=== PATIENT | female | born 1985 | race American Indian/Alaskan Native ===

== ENCOUNTER 2016-12-03 12:19 | Inpatient (IN) | payer MEDICAID ==
[2016-12-03] MEDS ORDERED: LACTATED RINGERS 1,000 ML ONE ×2 (12:45→13:57)
[2016-12-03] MEDS ORDERED: BRETHINE ONE (12:53)
[2016-12-03] MEDS ORDERED: LACTATED RINGERS 500 ML IV ONE (12:54)
[2016-12-03] MEDS ORDERED: BRETHINE SUB-Q SCH (13:00)
--- NOTE | 2016-12-03 14:09 | History and Physical Report ---
History of Present Illness Date of examination: 12/03/16 Chief complaint: Contractions History of present illness: Pt is a 31yo BF EDC 01/21/17; EGA 33 0/7 weeks presents to L&D complaining of RUC's q 3-4 mins. 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 She has been non-compliant, and therefore has not seen [facility], however records indicate she was to see them on 11/29/16. She is currently janette despite SQ Terbutaline, and therefore will be admitted for IV magnesium sulfate for tocolysis. records are available, and GBS in unknown. 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: abnormal PAP smear (ASCUS/HPV+), chlamydia, herpes Family/Genetic History: diabetes, hypertension Social history: no significant social history, single - Obstetrical History Expected Date of Delivery: 01/21/17 Actual Gestation: 33 Week(s) 0 Day(s) : 8 Medications and Allergies Allergies Allergy/AdvReac Type Severity Reaction Status Date / Time seafood Allergy Severe Anaphylaxis Uncoded 03/14/14 07:52 Home Medications Medication Instructions Recorded Confirmed Last Taken Type Pnv with Ca,No.72/Iron/FA 1 cap PO DAILY 07/09/15 08/28/15 07/09/15 10:00 History [ Plus Tablet] Acyclovir [Zovirax Oral Susp] 400 mg PO BID 30 Days 07/10/15 08/28/15 Unknown Rx NIFEdipine 10 mg PO Q6H #120 capsule 07/10/15 08/28/15 Unknown Rx Active Meds: Active Medications Terbutaline Sulfate (Brethine) 0.25 mg SUB-Q Q20MIN HERO Stop: 12/04/16 12:59 Last Admin: 12/03/16 13:50 Dose: 0.25 mg Review of Systems All systems: negative - Vital Signs Vital signs: Vital Signs Pulse Pulse Ox 80 100 12/03/16 12:35 12/03/16 12:35 Temp Pulse Resp BP Pulse Ox 98.3 F 84 20 134/69 100 12/03/16 13:15 12/03/16 13:30 12/03/16 13:15 12/03/16 13:15 12/03/16 13:30 - Physical Exam Breasts: Positive: deferred Cardiovascular: Regular rate Lungs: Positive: Clear to auscultation Abdomen: Positive: normal appearance Genitourinary (Female): Positive: normal external genitalia Vagina: Positive: normal moisture Uterus: Positive: enlarged - Obstetrical FHR: category 1 Uterine Contraction Monitor Mode: External Cervical Dilatation: 0 (per nurse (external Os ? 4cms)) Cervical Effacement Percentage: 50 (per nurse) Uterine Contraction Pattern: Regular Uterine Tone Measurement Phase: Contraction Uterine Contraction Intensity: Moderate Results Result Diagrams: 12/03/16 14:55 12/03/16 14:55 All other labs normal. Assessment and Plan - Patient Problems (1) 33 weeks gestation of Onset Date: 12/03/16 Current Visit: Yes Status: Acute Plan to address problem: A: IUP @ 33 0/7 weeks in early labor labor History of 4 labor and deliveries Hypokalemia Non-compliant P: Admit to L&D for Observation Will begin IV magnesium for tocolysis, IV Celestone and IV antibiotics Replete K+ Obtain labs, CBC,CMP, UA, and UDS Obtain [facility] consultation (2) labor Onset Date: 12/03/16 Current Visit: No Status: Acute Qualifiers: labor trimester: third trimester labor delivery status: P Fetus number: single or unspecified fetus (3) Hypokalemia Onset Date: 12/03/16 Current Visit: Yes Status: Acute
[2016-12-03] MEDS ORDERED: ZOFRAN IV PRN (14:12)
[2016-12-03] MEDS ORDERED: COLACE PO PRN (14:12)
[2016-12-03] MEDS ORDERED: MAGNESIUM SULFATE 4GM/100ML 4 GM/100 ML BAG IV ONE (14:12)
[2016-12-03] MEDS ORDERED: SENOKOT S PO PRN (14:12)
[2016-12-03] MEDS ORDERED: MILK OF MAGNESIA PO PRN (14:12)
[2016-12-03] MEDS ORDERED: POLYCILLIN/NS 2 GM/100 ML 2 GM/100 ML BAG IV ONE (14:12)
[2016-12-03] MEDS ORDERED: AMBIEN PO PRN (14:12)
[2016-12-03] MEDS ORDERED: ROBITUSSIN DM PO PRN (14:12)
[2016-12-03] MEDS: STADOL IV PRN ×3 (14:21→21:18)
[2016-12-03] MEDS: MAGNESIUM SULFATE 40GM/1000ML 40 GM/1,000 ML BAG IV SCH (14:36)
[2016-12-03] MEDS: CELESTONE SOLUSPAN IM SCH (14:50)
[2016-12-03 15:07] LABS: Urine Drugs of Abuse Note Disclamer
[2016-12-03] MEDS: NORMODYNE PO SCH ×2 (15:10→22:02)
[2016-12-03 15:12] LABS: Basophils % (Auto) 0.3 % (0.0-1.8); Eosinophils % (Auto) 2.7 % (0.0-4.3); Hematocrit 31.5 % (30.3-42.9); Hemoglobin 10.4 gm/dl (10.1-14.3); Mean Corpuscular HGB Conc 33 % (30-34); Mean Corpuscular Hemoglobin 29 pg (28-32); Mean Corpuscular Volume 89 fl (79-97); Platelet Count 175 K/mm3 (140-440); Red Blood Count 3.55 M/mm3 (3.65-5.03)
[2016-12-03 15:18] LABS: Bilirubin,Urine NEG (Negative); Blood,Urine NEG (Negative); Ketones,Urine 20 mg/dL (Negative); Leukocyte Esterase,Urine NEG (Negative); Mucus,Urine FEW /HPF; Nitrite,Urine NEG (Negative); Protein,Urine <15 mg/dL mg/dL (Negative); Urobilinogen,Urine < 2.0 mg/dL (<2.0); WBC,Urine < 1.0 /HPF (0.0-6.0)
[2016-12-03 15:21] LABS: RBC,Urine < 1.0 /HPF (0.0-6.0)
[2016-12-03 15:40] LABS: Alanine Aminotransferase 7 units/L (7-56); Albumin 2.8 g/dL (3.9-5); Albumin/Globulin Ratio 1.1 %; Alkaline Phosphatase 46 units/L (35-129); Anion Gap 18 mmol/L; Bilirubin,Total 0.6 mg/dL (0.1-1.2); Blood Urea Nitrogen 5 mg/dL (7-17); Calcium 7.9 mg/dL (8.4-10.2); Carbon Dioxide 17 mmol/L (22-30); Chloride 104.8 mmol/L (98-107); Glucose 99 mg/dL (65-100); Sodium 137 mmol/L (137-145); Total Protein 5.4 g/dL (6.3-8.2)
[2016-12-03 15:42] LABS: Potassium 2.6 mmol/L (3.6-5.0)
[2016-12-03] MEDS ORDERED: K-DUR PO PRN (15:48)
--- NOTE | 2016-12-03 17:27 | Admit Criteria Form ---
Admission Criteria Documentation: LABOR, THREATENED Clinical Indications for Admission to Inpatient Care (Place 'X' for any and all applicable criteria): Admission is indicated for ANY ONE of the following 1,2,3: [ ]I. Chorioamnionitis [ ]II. Significant vaginal bleeding or any vaginal bleeding with known placental previa or vasa previa 5,8 [ ]III. Serious maternal, infection or comorbidity (eg, pyelonephritis, pneumonia) as cause [ ]IV. Delivery [ ]V. distress or demise [ ]. labor and positive fibronectin(fFN) assay (9) [ ]VII. Condition requiring premature delivery (eg, premature rupture of membranes) 4,5 [ X]VIII. Inpatient admission required rather than observation care (Also use Labor, Threatened: Observation Care Criteria as appropriate) because of ANY ONE of the following: [X ]a) Continued monitoring that requires inpatient care [ ]b) Tocolytic therapy needed that requires inpatient care [ ]c) Complications of tocolytic treatment (eg, pulmonary edema, hypotension) that are severe or persistent (9) Extended stay beyond goal length of stay may be needed for (1)(2) [ ]a) Significant infection (eg, chorioamnionitis)(29) [ ]b) Continued uterine contractions [ ]c) demise [ ]d) Continued vaginal bleeding or placental abnormality [ ]e) Complications of tocolytic treatment (eg, pulmonary edema, hypotension)( 15) [ ]f) Multiple gestation(33) [ ]g) Other condition (eg, severe maternal disease, premature delivery) requiring continued inpatient care The original [facility] content created by [employer] has been revised. The portions of the content which have been revised are identified through the use of italic text or in bold, and [facility] [employer] has neither reviewed nor approved the modified material. All other unmodified content is copyright [email or web address]. Please see references footnoted in the original [facility] [employer] edition 2016 Admission Criteria Met: Yes
[2016-12-03] MEDS: KCL 10MEQ/100ML 10 MEQ/100 ML BAG IV PRN ×4 (18:11→23:39)
[2016-12-03] MEDS: POLYCILLIN/NS 1 GM/50 ML 1 GM/50 ML BAG IV SCH ×2 (19:17→23:15)
[2016-12-03] MEDS: LACTATED RINGERS 1,000 ML IV SCH (23:14)
[2016-12-03] MEDS: TYLENOL PO PRN (23:45)
[2016-12-04] MEDS: KCL 10MEQ/100ML 10 MEQ/100 ML BAG IV PRN ×2 (00:43→01:59)
[2016-12-04] MEDS: POLYCILLIN/NS 1 GM/50 ML 1 GM/50 ML BAG IV SCH ×5 (03:17→20:18)
--- NOTE | 2016-12-04 08:15 | Ultrasound Report ---
OB ULTRASOUND FOLLOWUP HISTORY: well-being, growth in position. COMPARISON: No recent comparison at this facility. TECHNIQUE: Transabdominal ultrasound with Doppler interrogation. Gestation: Single Position: Cephalic Amniotic Fluid: Normal MUNDO = 16.6 cm Placenta: Fundal, right lateral Placental Grade: 1 Heart Rate: 120 BPM Cervical length: 2.3 cm (Normal > 3 cm) BPD: 8.4 cm = 33 w 5 d HC: 30.2 cm = 33 w 4 d AC: 31.0 cm = 34 w 6 d FL: 6.3 cm = 32 w 4 d HC/AC Ratio: 0.98 Cephalic Index: 83.3 Estimated Weight: 2323 grams LMP: 04/16/16 Clinical age = 33 w 0 d EDC: 01/21/17 US Gest. Age = 33 w 5 d EDC: 01/16/17
--- NOTE | 2016-12-04 09:28 | Consultation ---
History of Present Illness Consult date: 12/04/16 Requesting physician: PERLA DELAROSA Reason for consult: contractions History of present illness: Patient admitted with labor at 33 weeks 1 day. Chart reviewed. Agree with current management. Patient may have a light breakfast Agree with completion of steroids and magnesium sulfate at this point. Full consult to follow. 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: abnormal PAP smear (ASCUS/HPV+), chlamydia, herpes Family/Genetic History: diabetes, hypertension - Obstetrical History : 8 Medications and Allergies Allergies Allergy/AdvReac Type Severity Reaction Status Date / Time seafood Allergy Severe Anaphylaxis Uncoded 03/14/14 07:52 Home Medications Medication Instructions Recorded Confirmed Last Taken Type Pnv with Ca,No.72/Iron/FA 1 cap PO DAILY 07/09/15 08/28/15 07/09/15 10:00 History [ Plus Tablet] Acyclovir [Zovirax Oral Susp] 400 mg PO BID 30 Days 07/10/15 08/28/15 Unknown Rx NIFEdipine 10 mg PO Q6H #120 capsule 07/10/15 08/28/15 Unknown Rx Active Meds: Active Medications Acetaminophen (Tylenol) 650 mg PO Q4H PRN PRN Reason: Pain MILD(1-3)/Fever >100.5/NAVARRO Last Admin: 12/03/16 23:45 Dose: 650 mg Betamethasone Acet/Betameth SodPhos (Celestone Soluspan) 12 mg IM Q24HR HERO Stop: 12/04/16 10:01 Last Admin: 12/03/16 14:50 Dose: 12 mg Butorphanol Tartrate (Stadol) 2 mg IV Q2H PRN PRN Reason: Labor Pain Last Admin: 12/03/16 21:18 Dose: 2 mg Docusate Sodium (Colace) 100 mg PO Q12H PRN PRN Reason: Constipation Guaifenesin (Robitussin Dm) 10 ml PO Q6H PRN PRN Reason: Cough Ampicillin Sodium (Polycillin/Ns 1 Gm/50 Ml) 1 gm in 50 mls @ 100 mls/hr IV Q4HR HERO PRN Reason: Protocol Last Admin: 12/04/16 07:15 Dose: 100 mls/hr Lactated Ringer's (Lactated Ringers) 1,000 mls @ 125 mls/hr IV DIRECT HERO Last Admin: 12/03/16 23:14 Dose: 125 mls/hr Magnesium Sulfate (Magnesium Sulfate 40gm/1000ml) 40 gm in 1,000 mls @ 50 mls/ hr IV DIRECT HERO PRN Reason: 2 GM/HR Last Admin: 12/03/16 14:36 Dose: 2 gm/hr, 50 mls/hr Potassium Chloride (Kcl 10meq/100ml) 10 meq in 100 mls @ 100 mls/hr IV Q1H PRN PRN Reason: Potassium 2.6-2.9 mEq/L Last Admin: 12/04/16 01:59 Dose: 100 mls/hr Labetalol HCl (Normodyne) 200 mg PO BID [facility] Last Admin: 12/03/16 22:02 Dose: 200 mg Magnesium Hydroxide (Milk Of Magnesia) 30 ml PO QHS PRN PRN Reason: Laxative Effect Multivitamins/Iron/Calcium ( Vitamin) 1 each PO QDAY [facility] Ondansetron HCl (Zofran) 4 mg IV Q6H PRN PRN Reason: Nausea And Vomiting Senna/Docusate Sodium (Senokot S) 2 tab PO Q12H PRN PRN Reason: Laxative Effect Terbutaline Sulfate (Brethine) 0.25 mg SUB-Q Q20MIN [facility] Stop: 12/04/16 12:59 Last Admin: 12/03/16 13:50 Dose: 0.25 mg Zolpidem Tartrate (Ambien) 10 mg PO ONCE PRN PRN Reason: Sleep - Vital Signs Vital signs: Vital Signs Pulse Pulse Ox 80 100 12/03/16 12:35 12/03/16 12:35 Temp Pulse Resp BP Pulse Ox 98.0 F 88 20 117/64 100 12/03/16 23:40 12/04/16 09:19 12/03/16 23:40 12/04/16 09:01 12/04/16 09:19 Results Result Diagrams: 12/03/16 14:55 12/04/16 04:10 Abnormal lab results 12/03/16 12/03/16 12/03/16 Range/Units 14:55 14:55 14:59 RBC 3.55 L (3.65-5.03) M/mm3 RDW 13.0 L (13.2-15.2) % [place] % (Auto) 9.7 H (0.0-7.3) % [place] # 0.9 H (0.0-0.8) K/mm3 Potassium 2.6 L* (3.6-5.0) mmol/L Carbon Dioxide 17 L (22-30) mmol/L BUN 5 L (7-17) mg/dL Creatinine 0.4 L (0.7-1.2) mg/dL Calcium 7.9 L (8.4-10.2) mg/dL Total Protein 5.4 L (6.3-8.2) g/dL Albumin 2.8 L (3.9-5) g/dL Urine pH 8.0 H (5.0-7.0) U Epithel Cells (Auto) 16.0 H (0-13.0) /HPF All other labs normal. Assessment and Plan Patient may have a light breakfast Agree with completion of steroids and magnesium sulfate at this point. Full consult to follow.
[2016-12-04] MEDS: PRENATAL VITAMIN PO SCH (09:56)
[2016-12-04] MEDS: NORMODYNE PO SCH ×2 (09:56→21:43)
--- NOTE | 2016-12-04 10:06 | Progress Note ---
Assessment and Plan - Patient Problems (1) 33 weeks gestation of Onset Date: 12/03/16 Current Visit: Yes Status: Acute Plan to address problem: A: IUP @ 33 1/7 weeks in early labor labor History of 4 labor and deliveries Hypokalemia - resolved Non-compliant +THC P: Continue present management Continue IV magnesium for tocolysis, IV Celestone and IV antibiotics Appreciate [facility] consultation (2) labor Onset Date: 12/03/16 Current Visit: No Status: Acute Qualifiers: labor trimester: third trimester labor delivery status: P Fetus number: single or unspecified fetus (3) Hypokalemia Onset Date: 12/03/16 Current Visit: Yes Status: Acute Subjective - Subjective Date of service: 12/04/16 Principal diagnosis: IUP @ 33 1/7 weeks; PTL Interval history: Pt is a 31yo BF EDC 01/21/17; EGA 33 1/7 weeks currently on magnesium sulfate for tocolysis and received 1st dose of Celestone. She denies reg contractions. Patient reports: new complaints, movement normal, contractions, no loss of fluid, no vaginal bleeding Objective - Vital Signs Vital Signs: Vital Signs - 12hr 12/03/16 12/03/16 12/03/16 22:11 22:16 22:21 Temperature Pulse Rate 83 91 H 94 H Pulse Rate [ Left From Monitor] Respiratory Rate Blood Pressure O2 Sat by Pulse 99 98 98 Oximetry 12/03/16 12/03/16 12/03/16 22:25 22:26 22:31 Temperature Pulse Rate 96 H 99 H 93 H Pulse Rate [ Left From Monitor] Respiratory Rate Blood Pressure 135/75 O2 Sat by Pulse 94 99 98 Oximetry 12/03/16 12/03/16 12/03/16 22:36 22:41 22:46 Temperature Pulse Rate 86 84 95 H Pulse Rate [ Left From Monitor] Respiratory Rate Blood Pressure O2 Sat by Pulse 98 99 98 Oximetry 12/03/16 12/03/16 12/03/16 22:51 22:56 23:01 Temperature Pulse Rate 88 90 89 Pulse Rate [ Left From Monitor] Respiratory Rate Blood Pressure 123/73 O2 Sat by Pulse 97 96 99 Oximetry 12/03/16 12/03/16 12/03/16 23:06 23:11 23:16 Temperature Pulse Rate 88 90 100 H Pulse Rate [ Left From Monitor] Respiratory Rate Blood Pressure O2 Sat by Pulse 98 99 97 Oximetry 12/03/16 12/03/16 12/03/16 23:21 23:26 23:31 Temperature Pulse Rate 95 H 93 H 88 Pulse Rate [ Left From Monitor] Respiratory Rate Blood Pressure 122/68 O2 Sat by Pulse 98 97 97 Oximetry 12/03/16 12/03/16 12/03/16 23:36 23:40 23:41 Temperature 98.0 F Pulse Rate 91 H 93 H Pulse Rate [ 92 H Left From Monitor] Respiratory 20 Rate Blood Pressure O2 Sat by Pulse 99 98 97 Oximetry 12/03/16 12/03/16 12/03/16 23:46 23:51 23:56 Temperature Pulse Rate 93 H 93 H 89 Pulse Rate [ Left From Monitor] Respiratory Rate Blood Pressure O2 Sat by Pulse 97 97 98 Oximetry 12/04/16 12/04/16 12/04/16 00:01 00:06 00:11 Temperature Pulse Rate 89 94 H 92 H Pulse Rate [ Left From Monitor] Respiratory Rate Blood Pressure 130/62 O2 Sat by Pulse 99 99 98 Oximetry 12/04/16 12/04/16 12/04/16 00:16 00:21 00:26 Temperature Pulse Rate 95 H 96 H 98 H Pulse Rate [ Left From Monitor] Respiratory Rate Blood Pressure O2 Sat by Pulse 98 98 99 Oximetry 12/04/16 12/04/16 12/04/16 00:31 00:36 00:41 Temperature Pulse Rate 97 H 97 H 94 H Pulse Rate [ Left From Monitor] Respiratory Rate Blood Pressure 133/74 O2 Sat by Pulse 98 97 99 Oximetry 12/04/16 12/04/16 12/04/16 00:46 00:51 00:56 Temperature Pulse Rate 92 H 94 H 94 H Pulse Rate [ Left From Monitor] Respiratory Rate Blood Pressure O2 Sat by Pulse 98 96 97 Oximetry 12/04/16 12/04/16 12/04/16 01:01 01:02 01:06 Temperature Pulse Rate 94 H 95 H 99 H Pulse Rate [ Left From Monitor] Respiratory Rate Blood Pressure 129/74 O2 Sat by Pulse 97 96 Oximetry 12/04/16 12/04/16 12/04/16 01:11 01:16 01:21 Temperature Pulse Rate 92 H 92 H 92 H Pulse Rate [ Left From Monitor] Respiratory Rate Blood Pressure O2 Sat by Pulse 96 97 97 Oximetry 12/04/16 12/04/16 12/04/16 01:26 01:31 01:36 Temperature Pulse Rate 94 H 94 H 94 H Pulse Rate [ Left From Monitor] Respiratory Rate Blood Pressure 128/69 O2 Sat by Pulse 97 97 97 Oximetry 12/04/16 12/04/16 12/04/16 01:41 01:46 01:51 Temperature Pulse Rate 92 H 92 H 94 H Pulse Rate [ Left From Monitor] Respiratory Rate Blood Pressure O2 Sat by Pulse 96 97 98 Oximetry 12/04/16 12/04/16 12/04/16 01:56 02:01 02:06 Temperature Pulse Rate 91 H 90 91 H Pulse Rate [ Left From Monitor] Respiratory Rate Blood Pressure 121/64 O2 Sat by Pulse 97 98 97 Oximetry 12/04/16 12/04/16 12/04/16 02:11 02:16 02:21 Temperature Pulse Rate 94 H 91 H 94 H Pulse Rate [ Left From Monitor] Respiratory Rate Blood Pressure O2 Sat by Pulse 97 97 97 Oximetry 12/04/16 12/04/16 12/04/16 02:26 02:31 02:36 Temperature Pulse Rate 90 86 94 H Pulse Rate [ Left From Monitor] Respiratory Rate Blood Pressure 117/61 O2 Sat by Pulse 97 98 97 Oximetry 12/04/16 12/04/16 12/04/16 02:41 02:46 02:51 Temperature Pulse Rate 94 H 93 H 92 H Pulse Rate [ Left From Monitor] Respiratory Rate Blood Pressure O2 Sat by Pulse 97 98 97 Oximetry 12/04/16 12/04/16 12/04/16 02:56 03:01 03:06 Temperature Pulse Rate 92 H 87 91 H Pulse Rate [ Left From Monitor] Respiratory Rate Blood Pressure 126/71 O2 Sat by Pulse 98 98 97 Oximetry 12/04/16 12/04/16 12/04/16 03:11 03:16 03:21 Temperature Pulse Rate 91 H 99 H 93 H Pulse Rate [ Left From Monitor] Respiratory Rate Blood Pressure O2 Sat by Pulse 97 97 97 Oximetry 12/04/16 12/04/16 12/04/16 03:26 03:31 03:32 Temperature Pulse Rate 97 H 98 H 96 H Pulse Rate [ Left From Monitor] Respiratory Rate Blood Pressure 107/60 O2 Sat by Pulse 98 97 Oximetry 12/04/16 12/04/16 12/04/16 03:36 03:41 03:46 Temperature Pulse Rate 93 H 94 H 87 Pulse Rate [ Left From Monitor] Respiratory Rate Blood Pressure O2 Sat by Pulse 96 98 98 Oximetry 12/04/16 12/04/16 12/04/16 03:51 03:56 04:01 Temperature Pulse Rate 91 H 89 84 Pulse Rate [ Left From Monitor] Respiratory Rate Blood Pressure 118/77 O2 Sat by Pulse 100 100 99 Oximetry 12/04/16 12/04/16 12/04/16 04:06 04:11 04:16 Temperature Pulse Rate 83 83 88 Pulse Rate [ Left From Monitor] Respiratory Rate Blood Pressure O2 Sat by Pulse 99 98 98 Oximetry 12/04/16 12/04/16 12/04/16 04:21 04:26 04:31 Temperature Pulse Rate 90 84 81 Pulse Rate [ Left From Monitor] Respiratory Rate Blood Pressure 121/63 O2 Sat by Pulse 99 100 100 Oximetry 12/04/16 12/04/16 12/04/16 04:36 04:41 04:46 Temperature Pulse Rate 84 86 86 Pulse Rate [ Left From Monitor] Respiratory Rate Blood Pressure O2 Sat by Pulse 100 99 99 Oximetry 12/04/16 12/04/16 12/04/16 04:51 04:56 05:01 Temperature Pulse Rate 88 83 88 Pulse Rate [ Left From Monitor] Respiratory Rate Blood Pressure 118/68 O2 Sat by Pulse 99 99 99 Oximetry 12/04/16 12/04/16 12/04/16 05:06 05:11 05:16 Temperature Pulse Rate 84 82 84 Pulse Rate [ Left From Monitor] Respiratory Rate Blood Pressure O2 Sat by Pulse 99 100 99 Oximetry 12/04/16 12/04/16 12/04/16 05:21 05:26 05:31 Temperature Pulse Rate 90 86 91 H Pulse Rate [ Left From Monitor] Respiratory Rate Blood Pressure 120/65 O2 Sat by Pulse 100 100 99 Oximetry 12/04/16 12/04/16 12/04/16 05:36 05:41 05:46 Temperature Pulse Rate 86 87 82 Pulse Rate [ Left From Monitor] Respiratory Rate Blood Pressure O2 Sat by Pulse 100 100 100 Oximetry 12/04/16 12/04/16 12/04/16 05:51 05:56 06:01 Temperature Pulse Rate 85 95 H 88 Pulse Rate [ Left From Monitor] Respiratory Rate Blood Pressure 119/68 O2 Sat by Pulse 100 100 100 Oximetry 12/04/16 12/04/16 12/04/16 06:06 06:11 06:16 Temperature Pulse Rate 90 89 96 H Pulse Rate [ Left From Monitor] Respiratory Rate Blood Pressure O2 Sat by Pulse 100 100 100 Oximetry 12/04/16 12/04/16 12/04/16 06:31 06:34 06:39 Temperature Pulse Rate 89 89 89 Pulse Rate [ Left From Monitor] Respiratory Rate Blood Pressure 122/67 O2 Sat by Pulse 100 99 Oximetry 12/04/16 12/04/16 12/04/16 06:44 06:49 06:54 Temperature Pulse Rate 99 H 87 88 Pulse Rate [ Left From Monitor] Respiratory Rate Blood Pressure O2 Sat by Pulse 100 99 99 Oximetry 12/04/16 12/04/16 12/04/16 06:59 07:01 07:04 Temperature Pulse Rate 84 93 H 84 Pulse Rate [ Left From Monitor] Respiratory Rate Blood Pressure 121/64 O2 Sat by Pulse 99 98 Oximetry 12/04/16 12/04/16 12/04/16 07:09 07:14 07:19 Temperature Pulse Rate 83 88 88 Pulse Rate [ Left From Monitor] Respiratory Rate Blood Pressure O2 Sat by Pulse 98 98 98 Oximetry 12/04/16 12/04/16 12/04/16 07:24 07:29 07:31 Temperature Pulse Rate 88 89 90 Pulse Rate [ Left From Monitor] Respiratory Rate Blood Pressure 123/65 O2 Sat by Pulse 98 98 Oximetry 12/04/16 12/04/16 12/04/16 07:34 07:39 07:44 Temperature Pulse Rate 85 88 95 H Pulse Rate [ Left From Monitor] Respiratory Rate Blood Pressure O2 Sat by Pulse 99 99 100 Oximetry 12/04/16 12/04/16 12/04/16 07:49 07:54 07:59 Temperature Pulse Rate 90 89 90 Pulse Rate [ Left From Monitor] Respiratory Rate Blood Pressure O2 Sat by Pulse 98 100 98 Oximetry 12/04/16 12/04/16 12/04/16 08:01 08:04 08:09 Temperature Pulse Rate 88 88 88 Pulse Rate [ Left From Monitor] Respiratory Rate Blood Pressure 122/56 O2 Sat by Pulse 100 100 Oximetry 12/04/16 12/04/16 12/04/16 08:14 08:19 08:24 Temperature Pulse Rate 86 86 86 Pulse Rate [ Left From Monitor] Respiratory Rate Blood Pressure O2 Sat by Pulse 100 100 100 Oximetry 12/04/16 12/04/16 12/04/16 08:29 08:31 08:34 Temperature Pulse Rate 88 83 85 Pulse Rate [ Left From Monitor] Respiratory Rate Blood Pressure 115/64 O2 Sat by Pulse 100 100 Oximetry 12/04/16 12/04/16 12/04/16 08:38 08:39 08:44 Temperature Pulse Rate 86 83 84 Pulse Rate [ Left From Monitor] Respiratory Rate Blood Pressure O2 Sat by Pulse 92 100 100 Oximetry 12/04/16 12/04/16 12/04/16 08:49 08:54 08:59 Temperature Pulse Rate 82 88 84 Pulse Rate [ Left From Monitor] Respiratory Rate Blood Pressure O2 Sat by Pulse 100 100 100 Oximetry 12/04/16 12/04/16 12/04/16 09:01 09:04 09:09 Temperature Pulse Rate 87 86 87 Pulse Rate [ Left From Monitor] Respiratory Rate Blood Pressure 117/64 O2 Sat by Pulse 100 100 Oximetry 12/04/16 12/04/16 12/04/16 09:14 09:19 09:24 Temperature Pulse Rate 83 88 86 Pulse Rate [ Left From Monitor] Respiratory Rate Blood Pressure O2 Sat by Pulse 99 100 100 Oximetry 12/04/16 12/04/16 12/04/16 09:29 09:31 09:34 Temperature Pulse Rate 84 85 88 Pulse Rate [ Left From Monitor] Respiratory Rate Blood Pressure 122/67 O2 Sat by Pulse 100 100 Oximetry 12/04/16 12/04/16 12/04/16 09:39 09:44 09:49 Temperature Pulse Rate 92 H 84 88 Pulse Rate [ Left From Monitor] Respiratory Rate Blood Pressure O2 Sat by Pulse 100 100 100 Oximetry 12/04/16 12/04/16 12/04/16 09:54 09:55 09:56 Temperature Pulse Rate 81 91 H 85 Pulse Rate [ Left From Monitor] Respiratory Rate Blood Pressure 122/67 O2 Sat by Pulse 100 85 Oximetry 12/04/16 12/04/16 09:59 10:04 Temperature 98.0 F Pulse Rate 87 Pulse Rate [ 89 Left From Monitor] Respiratory 18 Rate Blood Pressure O2 Sat by Pulse 100 100 Oximetry - Exam Breasts: deferred Lungs: Clear to auscultation Abdomen: Present: normal appearance, soft Uterus: Present: normal FHR: category 1 Uterine Contraction Monitor Mode: External Uterine Contraction Pattern: Irregular Uterine Contraction Intensity: Mild - Labs Labs: Abnormal Labs 12/03/16 12/03/16 12/03/16 14:55 14:55 14:59 RBC 3.55 L RDW 13.0 L [place] % (Auto) 9.7 H [place] # 0.9 H Potassium 2.6 L* Carbon Dioxide 17 L BUN 5 L Creatinine 0.4 L Calcium 7.9 L Total Protein 5.4 L Albumin 2.8 L Urine pH 8.0 H U Epithel Cells (Auto) 16.0 H Laboratory Results - last 24 hr 12/03/16 12/03/16 12/03/16 14:30 14:55 14:55 WBC 9.0 RBC 3.55 L Hgb 10.4 Hct 31.5 MCV 89 MCH 29 MCHC 33 RDW 13.0 L Plt Count 175 Lymph % (Auto) 32.1 [place] % (Auto) 9.7 H Eos % (Auto) 2.7 Baso % (Auto) 0.3 Lymph # 2.9 [place] # 0.9 H Eos # 0.2 Baso # 0.0 Seg Neutrophils % 55.2 Seg Neutrophils # 4.9 Sodium 137 Potassium 2.6 L* Chloride 104.8 Carbon Dioxide 17 L Anion Gap 18 BUN 5 L Creatinine 0.4 L Estimated GFR > 60 BUN/Creatinine Ratio 12.50 Glucose 99 Calcium 7.9 L Total Bilirubin 0.6 AST 12 ALT 7 Alkaline Phosphatase 46 Total Protein 5.4 L Albumin 2.8 L Albumin/Globulin Ratio 1.1 Urine Color Urine Turbidity Urine pH Ur Specific [place] Urine Protein Urine Glucose (UA) Urine Ketones Urine Blood Urine Nitrite Urine Bilirubin Urine Urobilinogen Ur Leukocyte Esterase Urine WBC (Auto) Urine RBC (Auto) U Epithel Cells (Auto) Urine Mucus Urine Opiates Screen Urine Methadone Screen Ur Barbiturates Screen Ur Phencyclidine Scrn Ur Amphetamines Screen U Benzodiazepines Scrn Urine Cocaine Screen U Marijuana (THC) Screen Drugs of Abuse Note Blood Type A POSITIVE Antibody Screen Negative 12/03/16 12/03/16 12/04/16 14:59 14:59 04:10 WBC RBC Hgb Hct MCV MCH MCHC RDW Plt Count Lymph % (Auto) [place] % (Auto) Eos % (Auto) Baso % (Auto) Lymph # [place] # Eos # Baso # Seg Neutrophils % Seg Neutrophils # Sodium Potassium 4.7 D Chloride Carbon Dioxide Anion Gap BUN Creatinine Estimated GFR BUN/Creatinine Ratio Glucose Calcium Total Bilirubin AST ALT Alkaline Phosphatase Total Protein Albumin Albumin/Globulin Ratio Urine Color Yellow Urine Turbidity Slightly-cloudy Urine pH 8.0 H Ur Specific [place] 1.012 Urine Protein <15 mg/dl Urine Glucose (UA) Neg Urine Ketones 20 Urine Blood Neg Urine Nitrite Neg Urine Bilirubin Neg Urine Urobilinogen < 2.0 Ur Leukocyte Esterase Neg Urine WBC (Auto) < 1.0 Urine RBC (Auto) < 1.0 U Epithel Cells (Auto) 16.0 H Urine Mucus Few Urine Opiates Screen Presumptive negative Urine Methadone Screen Presumptive negative Ur Barbiturates Screen Presumptive negative Ur Phencyclidine Scrn Presumptive negative Ur Amphetamines Screen Presumptive negative U Benzodiazepines Scrn Presumptive negative Urine Cocaine Screen Presumptive negative U Marijuana (THC) Screen Presumptive positive Drugs of Abuse Note Disclamer Blood Type Antibody Screen
[2016-12-04] MEDS: MAGNESIUM SULFATE 40GM/1000ML 40 GM/1,000 ML BAG IV SCH (11:34)
[2016-12-04] MEDS: TYLENOL PO PRN (13:39)
[2016-12-04] MEDS: LACTATED RINGERS 1,000 ML IV SCH (14:14)
[2016-12-04] MEDS: CELESTONE SOLUSPAN IM SCH (14:14)
[2016-12-04] MEDS ORDERED: CELESTONE SOLUSPAN IM ONE (15:00)
--- NOTE | 2016-12-04 15:44 | Consultation ---
History of Present Illness Consult date: 12/04/16 Requesting physician: PERLA DELAROSA History of present illness: As you are aware, this is an 31 year old para 4125 patient at EGA= 33 weeks 1 days gestation (based on an KALIE of 01/21/17) who was admitted to the L&D at [facility] due to suspected labor. Patient describes contractions over the last 3-4 days. She denies vaginal bleeding or fluid leakage per vagina. PAST OBSTERICAL HISTORY: * 2010: BW: ~ 5 pounds * 2012: BW: ~ 5 pounds * 2013: at 28 weeks. BW: 3 pounds. * 2014: BW: ~ 5 pounds * 2015: BW: ~ 5 pounds [facility] ULTRASONOGRAPHY: o See report in chart. Physical Examination: See hospital chart for details Recent blood pressures: stable General exam: WDWN, NAD. Abdominal exam: soft, non-tender, non-distended, bowel sounds: normal. SVE on admission: See previous notes. [place]: Minimal contractions appreciated at present. 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[employer]ER History: abnormal PAP smear (ASCUS/HPV+), chlamydia, herpes Family/Genetic History: diabetes, hypertension - Obstetrical History : 8 Medications and Allergies Allergies Allergy/AdvReac Type Severity Reaction Status Date / Time seafood Allergy Severe Anaphylaxis Uncoded 03/14/14 07:52 Home Medications Medication Instructions Recorded Confirmed Last Taken Type Pnv with Ca,No.72/Iron/FA 1 cap PO DAILY 07/09/15 08/28/15 07/09/15 10:00 History [ Plus Tablet] Acyclovir [Zovirax Oral Susp] 400 mg PO BID 30 Days 07/10/15 08/28/15 Unknown Rx NIFEdipine 10 mg PO Q6H #120 capsule 07/10/15 08/28/15 Unknown Rx Active Meds: Active Medications Acetaminophen (Tylenol) 650 mg PO Q4H PRN PRN Reason: Pain MILD(1-3)/Fever >100.5/NAVARRO Last Admin: 12/04/16 13:39 Dose: 650 mg Butorphanol Tartrate (Stadol) 2 mg IV Q2H PRN PRN Reason: Labor Pain Last Admin: 12/03/16 21:18 Dose: 2 mg Docusate Sodium (Colace) 100 mg PO Q12H PRN PRN Reason: Constipation Guaifenesin (Robitussin Dm) 10 ml PO Q6H PRN PRN Reason: Cough Ampicillin Sodium (Polycillin/Ns 1 Gm/50 Ml) 1 gm in 50 mls @ 100 mls/hr IV Q4HR HERO PRN Reason: Protocol Last Admin: 12/04/16 14:13 Dose: 100 mls/hr Lactated Ringer's (Lactated Ringers) 1,000 mls @ 125 mls/hr IV DIRECT HERO Last Admin: 12/04/16 14:14 Dose: 125 mls/hr Magnesium Sulfate (Magnesium Sulfate 40gm/1000ml) 40 gm in 1,000 mls @ 50 mls/ hr IV DIRECT HERO PRN Reason: 2 GM/HR Last Admin: 12/04/16 11:34 Dose: 2 gm/hr, 50 mls/hr Potassium Chloride (Kcl 10meq/100ml) 10 meq in 100 mls @ 100 mls/hr IV Q1H PRN PRN Reason: Potassium 2.6-2.9 mEq/L Last Admin: 12/04/16 01:59 Dose: 100 mls/hr Labetalol HCl (Normodyne) 200 mg PO BID [facility] Last Admin: 12/04/16 09:56 Dose: 200 mg Magnesium Hydroxide (Milk Of Magnesia) 30 ml PO QHS PRN PRN Reason: Laxative Effect Multivitamins/Iron/Calcium ( Vitamin) 1 each PO QDAY [facility] Last Admin: 12/04/16 09:56 Dose: 1 each Ondansetron HCl (Zofran) 4 mg IV Q6H PRN PRN Reason: Nausea And Vomiting Senna/Docusate Sodium (Senokot S) 2 tab PO Q12H PRN PRN Reason: Laxative Effect Zolpidem Tartrate (Ambien) 10 mg PO ONCE PRN PRN Reason: Sleep - Vital Signs Vital signs: Vital Signs Pulse Pulse Ox 80 100 12/03/16 12:35 12/03/16 12:35 Temp Pulse Resp BP Pulse Ox 98.0 F 87 20 116/59 98 12/04/16 12:00 12/04/16 15:33 12/04/16 12:00 12/04/16 15:33 12/04/16 13:42 Results Result Diagrams: 12/03/16 14:55 12/04/16 04:10 All other labs normal. Assessment and Plan ASSESSMENT: * IUP at 33 weeks. * Contractions and Cervical change. * Rule out labor. RECOMMENDATIONS & CONSULTATION: 1. Agree with admission to [facility] 2. Betamethasone is advisable to enhance lung maturation 3. Given the current gestational age, estimated weight and progressive nature of contractions I would exercise caution with additional (aggressive) tocolysis given the narrow margin between risk and benefit for these medications at this gestational age. 4. Currently there is insufficient evidence to support aggressive intravenous tocolysis in this patient after completion of steroids. 5. I would abandon all attempts of tocolysis in the presence of SROM, unexplained vaginal bleeding, SVE > 5 cm or a non-reassuring heart rate pattern. 6. Call [facility] PRN a change in maternal or status. Thank you for allowing us to participate in the care of this patient. We look forward to the opportunity to assist in her continued management. If you have any questions, please contact our office at [phone]. Ange Bear M.D.
[2016-12-04] MEDS: PHENERGAN PO PRN ×2 (17:53→23:08)
[2016-12-05] MEDS ORDERED: MAGNESIUM SULFATE 40GM/1000ML 40 GM/1,000 ML BAG IV SCH (08:00)
--- NOTE | 2016-12-05 09:49 | Progress Note ---
Assessment and Plan - Patient Problems (1) 33 weeks gestation of Onset Date: 12/03/16 Current Visit: Yes Status: Acute Plan to address problem: A: IUP @ 33 2/7 weeks labor - resolved. Received magnesium sulfate and Celestone History of 4 labor and deliveries Hypokalemia - resolved Non-compliant +THC P: Will discharge to home (Discussed with Dr Celaya - no need for further tocolysis) Follow up with [facility] next week (2) labor Onset Date: 12/03/16 Current Visit: No Status: Acute Qualifiers: labor trimester: third trimester labor delivery status: P Fetus number: single or unspecified fetus (3) Hypokalemia Onset Date: 12/03/16 Current Visit: Yes Status: Acute Subjective - Subjective Date of service: 12/05/16 Principal diagnosis: IUP @ 33 2/7 weeks; PTL Interval history: Pt is a 31yo BF EDC 01/21/17; EGA 33 2/7 weeks currently on magnesium sulfate for tocolysis and received 2nd dose of Celestone. She denies reg contractions. Patient reports: new complaints, movement normal, no loss of fluid, no vaginal bleeding, no contractions Objective - Vital Signs Vital Signs: Vital Signs - 12hr 12/04/16 12/04/16 12/04/16 21:49 21:54 21:59 Temperature Pulse Rate 95 H 100 H 108 H Pulse Rate [ Left From Monitor] Respiratory Rate Blood Pressure Blood Pressure [Left Arm] O2 Sat by Pulse 97 98 98 Oximetry 12/04/16 12/04/16 12/04/16 22:04 22:09 22:14 Temperature Pulse Rate 101 H 91 H 89 Pulse Rate [ Left From Monitor] Respiratory Rate Blood Pressure Blood Pressure [Left Arm] O2 Sat by Pulse 98 97 98 Oximetry 12/04/16 12/04/16 12/04/16 22:19 22:24 22:29 Temperature Pulse Rate 96 H 91 H 98 H Pulse Rate [ Left From Monitor] Respiratory Rate Blood Pressure Blood Pressure [Left Arm] O2 Sat by Pulse 97 97 98 Oximetry 12/04/16 12/04/16 12/04/16 22:34 22:39 22:42 Temperature Pulse Rate 90 90 90 Pulse Rate [ Left From Monitor] Respiratory Rate Blood Pressure 109/58 Blood Pressure [Left Arm] O2 Sat by Pulse 98 97 Oximetry 12/04/16 12/04/16 12/04/16 22:44 22:51 22:56 Temperature Pulse Rate 96 H 84 98 H Pulse Rate [ Left From Monitor] Respiratory Rate Blood Pressure Blood Pressure [Left Arm] O2 Sat by Pulse 97 98 99 Oximetry 12/04/16 12/04/16 12/04/16 23:01 23:06 23:09 Temperature 98.1 F Pulse Rate 92 H 89 Pulse Rate [ Left From Monitor] Respiratory 18 Rate Blood Pressure Blood Pressure [Left Arm] O2 Sat by Pulse 97 98 Oximetry 12/04/16 12/04/16 12/04/16 23:11 23:16 23:21 Temperature Pulse Rate 91 H 93 H 90 Pulse Rate [ Left From Monitor] Respiratory Rate Blood Pressure Blood Pressure [Left Arm] O2 Sat by Pulse 98 98 97 Oximetry 12/04/16 12/04/16 12/04/16 23:26 23:31 23:36 Temperature Pulse Rate 95 H 92 H 89 Pulse Rate [ Left From Monitor] Respiratory Rate Blood Pressure Blood Pressure [Left Arm] O2 Sat by Pulse 97 97 98 Oximetry 12/04/16 12/04/16 12/04/16 23:41 23:42 23:46 Temperature Pulse Rate 102 H 88 85 Pulse Rate [ Left From Monitor] Respiratory Rate Blood Pressure 118/63 Blood Pressure [Left Arm] O2 Sat by Pulse 97 97 Oximetry 12/04/16 12/04/16 12/05/16 23:51 23:56 00:01 Temperature Pulse Rate 89 92 H 89 Pulse Rate [ Left From Monitor] Respiratory Rate Blood Pressure Blood Pressure [Left Arm] O2 Sat by Pulse 98 98 97 Oximetry 12/05/16 12/05/16 12/05/16 00:06 00:11 00:16 Temperature Pulse Rate 88 89 89 Pulse Rate [ Left From Monitor] Respiratory Rate Blood Pressure Blood Pressure [Left Arm] O2 Sat by Pulse 96 96 96 Oximetry 12/05/16 12/05/16 12/05/16 00:21 00:26 00:31 Temperature Pulse Rate 90 84 87 Pulse Rate [ Left From Monitor] Respiratory Rate Blood Pressure Blood Pressure [Left Arm] O2 Sat by Pulse 96 96 96 Oximetry 12/05/16 12/05/16 12/05/16 00:34 00:36 00:41 Temperature Pulse Rate 77 87 88 Pulse Rate [ Left From Monitor] Respiratory Rate Blood Pressure Blood Pressure [Left Arm] O2 Sat by Pulse 94 97 96 Oximetry 12/05/16 12/05/16 12/05/16 00:42 00:46 00:51 Temperature Pulse Rate 88 90 91 H Pulse Rate [ Left From Monitor] Respiratory Rate Blood Pressure 112/58 Blood Pressure [Left Arm] O2 Sat by Pulse 97 96 Oximetry 12/05/16 12/05/16 12/05/16 00:56 01:01 01:06 Temperature Pulse Rate 90 88 88 Pulse Rate [ Left From Monitor] Respiratory Rate Blood Pressure Blood Pressure [Left Arm] O2 Sat by Pulse 96 97 96 Oximetry 12/05/16 12/05/16 12/05/16 01:11 01:16 01:30 Temperature Pulse Rate 88 87 70 Pulse Rate [ Left From Monitor] Respiratory Rate Blood Pressure Blood Pressure [Left Arm] O2 Sat by Pulse 96 97 98 Oximetry 12/05/16 12/05/16 12/05/16 01:34 01:35 01:40 Temperature Pulse Rate 75 72 83 Pulse Rate [ Left From Monitor] Respiratory Rate Blood Pressure Blood Pressure [Left Arm] O2 Sat by Pulse 93 96 96 Oximetry 12/05/16 12/05/16 12/05/16 01:42 01:45 01:50 Temperature Pulse Rate 80 77 84 Pulse Rate [ Left From Monitor] Respiratory Rate Blood Pressure 115/66 Blood Pressure [Left Arm] O2 Sat by Pulse 98 96 Oximetry 12/05/16 12/05/16 12/05/16 01:55 02:00 02:05 Temperature Pulse Rate 81 74 84 Pulse Rate [ Left From Monitor] Respiratory Rate Blood Pressure Blood Pressure [Left Arm] O2 Sat by Pulse 97 95 97 Oximetry 12/05/16 12/05/16 12/05/16 02:10 02:15 02:20 Temperature Pulse Rate 86 88 84 Pulse Rate [ Left From Monitor] Respiratory Rate Blood Pressure Blood Pressure [Left Arm] O2 Sat by Pulse 97 97 98 Oximetry 12/05/16 12/05/16 12/05/16 02:25 02:30 02:35 Temperature Pulse Rate 86 91 H 89 Pulse Rate [ Left From Monitor] Respiratory Rate Blood Pressure Blood Pressure [Left Arm] O2 Sat by Pulse 97 96 96 Oximetry 12/05/16 12/05/16 12/05/16 02:40 02:43 02:45 Temperature Pulse Rate 81 75 72 Pulse Rate [ Left From Monitor] Respiratory Rate Blood Pressure 116/71 Blood Pressure [Left Arm] O2 Sat by Pulse 99 99 Oximetry 12/05/16 12/05/16 12/05/16 02:50 02:55 03:00 Temperature Pulse Rate 81 76 91 H Pulse Rate [ Left From Monitor] Respiratory Rate Blood Pressure Blood Pressure [Left Arm] O2 Sat by Pulse 98 97 97 Oximetry 12/05/16 12/05/16 12/05/16 03:05 03:10 03:11 Temperature Pulse Rate 90 90 75 Pulse Rate [ Left From Monitor] Respiratory Rate Blood Pressure Blood Pressure [Left Arm] O2 Sat by Pulse 97 97 92 Oximetry 12/05/16 12/05/16 12/05/16 03:15 03:20 03:25 Temperature Pulse Rate 87 87 88 Pulse Rate [ Left From Monitor] Respiratory Rate Blood Pressure Blood Pressure [Left Arm] O2 Sat by Pulse 96 96 96 Oximetry 12/05/16 12/05/16 12/05/16 03:30 03:35 03:40 Temperature Pulse Rate 87 82 82 Pulse Rate [ Left From Monitor] Respiratory Rate Blood Pressure Blood Pressure [Left Arm] O2 Sat by Pulse 96 96 97 Oximetry 12/05/16 12/05/16 12/05/16 03:42 03:45 03:50 Temperature Pulse Rate 81 81 84 Pulse Rate [ Left From Monitor] Respiratory Rate Blood Pressure 117/61 Blood Pressure [Left Arm] O2 Sat by Pulse 97 97 Oximetry 12/05/16 12/05/16 12/05/16 03:55 04:00 04:05 Temperature Pulse Rate 79 85 82 Pulse Rate [ Left From Monitor] Respiratory Rate Blood Pressure Blood Pressure [Left Arm] O2 Sat by Pulse 97 97 97 Oximetry 12/05/16 12/05/16 12/05/16 04:10 04:15 04:20 Temperature Pulse Rate 84 86 87 Pulse Rate [ Left From Monitor] Respiratory Rate Blood Pressure Blood Pressure [Left Arm] O2 Sat by Pulse 97 97 97 Oximetry 12/05/16 12/05/16 12/05/16 04:25 04:30 04:35 Temperature Pulse Rate 88 84 87 Pulse Rate [ Left From Monitor] Respiratory Rate Blood Pressure Blood Pressure [Left Arm] O2 Sat by Pulse 97 97 97 Oximetry 12/05/16 12/05/16 12/05/16 04:40 04:42 04:45 Temperature Pulse Rate 83 81 81 Pulse Rate [ Left From Monitor] Respiratory Rate Blood Pressure 123/70 Blood Pressure [Left Arm] O2 Sat by Pulse 95 97 Oximetry 12/05/16 12/05/16 12/05/16 04:49 04:50 04:55 Temperature Pulse Rate 86 83 84 Pulse Rate [ Left From Monitor] Respiratory Rate Blood Pressure Blood Pressure [Left Arm] O2 Sat by Pulse 93 98 94 Oximetry 12/05/16 12/05/16 12/05/16 05:00 05:03 05:05 Temperature 98.3 F Pulse Rate 88 79 Pulse Rate [ Left From Monitor] Respiratory 20 Rate Blood Pressure Blood Pressure [Left Arm] O2 Sat by Pulse 97 95 Oximetry 12/05/16 12/05/16 12/05/16 05:10 05:15 05:20 Temperature Pulse Rate 82 84 83 Pulse Rate [ Left From Monitor] Respiratory Rate Blood Pressure Blood Pressure [Left Arm] O2 Sat by Pulse 98 97 97 Oximetry 12/05/16 12/05/16 12/05/16 05:25 05:30 05:35 Temperature Pulse Rate 84 79 82 Pulse Rate [ Left From Monitor] Respiratory Rate Blood Pressure Blood Pressure [Left Arm] O2 Sat by Pulse 97 98 98 Oximetry 12/05/16 12/05/16 12/05/16 05:40 05:43 05:45 Temperature Pulse Rate 83 82 89 Pulse Rate [ Left From Monitor] Respiratory Rate Blood Pressure 130/72 Blood Pressure [Left Arm] O2 Sat by Pulse 100 99 Oximetry 12/05/16 12/05/16 12/05/16 05:50 05:55 06:00 Temperature Pulse Rate 86 82 85 Pulse Rate [ Left From Monitor] Respiratory Rate Blood Pressure Blood Pressure [Left Arm] O2 Sat by Pulse 100 99 99 Oximetry 12/05/16 12/05/16 12/05/16 06:05 06:10 06:15 Temperature Pulse Rate 82 77 76 Pulse Rate [ Left From Monitor] Respiratory Rate Blood Pressure Blood Pressure [Left Arm] O2 Sat by Pulse 98 98 97 Oximetry 12/05/16 12/05/16 12/05/16 06:20 06:25 06:30 Temperature Pulse Rate 66 78 84 Pulse Rate [ Left From Monitor] Respiratory Rate Blood Pressure Blood Pressure [Left Arm] O2 Sat by Pulse 97 98 99 Oximetry 0312/05/16 12/05/16 06:35 06:40 06:42 Temperature Pulse Rate 85 81 79 Pulse Rate [ Left From Monitor] Respiratory Rate Blood Pressure 124/68 Blood Pressure [Left Arm] O2 Sat by Pulse 98 97 Oximetry 12/05/16 12/05/16 12/05/16 06:45 06:50 06:55 Temperature Pulse Rate 80 82 81 Pulse Rate [ Left From Monitor] Respiratory Rate Blood Pressure Blood Pressure [Left Arm] O2 Sat by Pulse 96 97 97 Oximetry 12/05/16 12/05/16 12/05/16 07:00 07:04 07:05 Temperature Pulse Rate 83 79 81 Pulse Rate [ Left From Monitor] Respiratory Rate Blood Pressure Blood Pressure [Left Arm] O2 Sat by Pulse 97 92 96 Oximetry 12/05/16 12/05/16 12/05/16 07:10 07:15 07:20 Temperature Pulse Rate 77 85 75 Pulse Rate [ Left From Monitor] Respiratory Rate Blood Pressure Blood Pressure [Left Arm] O2 Sat by Pulse 97 97 95 Oximetry 12/05/16 12/05/16 12/05/16 07:25 07:29 07:30 Temperature Pulse Rate 83 77 82 Pulse Rate [ Left From Monitor] Respiratory Rate Blood Pressure Blood Pressure [Left Arm] O2 Sat by Pulse 97 94 96 Oximetry 12/05/16 12/05/16 12/05/16 07:35 07:40 07:42 Temperature Pulse Rate 84 83 82 Pulse Rate [ Left From Monitor] Respiratory Rate Blood Pressure 125/74 Blood Pressure [Left Arm] O2 Sat by Pulse 96 97 Oximetry 12/05/16 12/05/16 12/05/16 07:45 07:47 07:50 Temperature Pulse Rate 83 95 H 89 Pulse Rate [ Left From Monitor] Respiratory Rate Blood Pressure Blood Pressure [Left Arm] O2 Sat by Pulse 97 93 96 Oximetry 12/05/16 12/05/16 12/05/16 07:55 08:00 08:05 Temperature Pulse Rate 84 81 84 Pulse Rate [ Left From Monitor] Respiratory Rate Blood Pressure Blood Pressure [Left Arm] O2 Sat by Pulse 94 97 97 Oximetry 12/05/16 12/05/16 12/05/16 08:10 08:15 08:20 Temperature Pulse Rate 85 82 87 Pulse Rate [ Left From Monitor] Respiratory Rate Blood Pressure Blood Pressure [Left Arm] O2 Sat by Pulse 97 97 96 Oximetry 12/05/16 12/05/16 12/05/16 08:25 08:29 08:30 Temperature 98.6 F Pulse Rate 84 79 Pulse Rate [ 80 Left From Monitor] Respiratory 18 Rate Blood Pressure Blood Pressure 125/74 [Left Arm] O2 Sat by Pulse 97 97 97 Oximetry 12/05/16 12/05/16 12/05/16 08:35 08:40 08:42 Temperature Pulse Rate 82 75 82 Pulse Rate [ Left From Monitor] Respiratory Rate Blood Pressure 123/78 Blood Pressure [Left Arm] O2 Sat by Pulse 98 99 Oximetry 12/05/16 12/05/16 12/05/16 08:45 08:50 08:55 Temperature Pulse Rate 85 79 88 Pulse Rate [ Left From Monitor] Respiratory Rate Blood Pressure Blood Pressure [Left Arm] O2 Sat by Pulse 98 98 98 Oximetry 12/05/16 12/05/16 12/05/16 09:00 09:05 09:10 Temperature Pulse Rate 77 78 94 H Pulse Rate [ Left From Monitor] Respiratory Rate Blood Pressure Blood Pressure [Left Arm] O2 Sat by Pulse 98 98 97 Oximetry 12/05/16 12/05/16 12/05/16 09:15 09:20 09:25 Temperature Pulse Rate 86 94 H 98 H Pulse Rate [ Left From Monitor] Respiratory Rate Blood Pressure Blood Pressure [Left Arm] O2 Sat by Pulse 98 98 97 Oximetry 12/05/16 12/05/16 12/05/16 09:30 09:35 09:40 Temperature Pulse Rate 94 H 94 H 97 H Pulse Rate [ Left From Monitor] Respiratory Rate Blood Pressure Blood Pressure [Left Arm] O2 Sat by Pulse 97 97 97 Oximetry 12/05/16 09:42 Temperature Pulse Rate 99 H Pulse Rate [ Left From Monitor] Respiratory Rate Blood Pressure 124/62 Blood Pressure [Left Arm] O2 Sat by Pulse Oximetry - Exam Breasts: deferred Abdomen: Present: normal appearance, soft Uterus: Present: normal FHR: category 1 Uterine Contraction Monitor Mode: External Cervical Dilatation: 2 Cervical Effacement Percentage: 50 station: -3 Uterine Contraction Pattern: Absent - Labs Labs: Abnormal Labs 12/03/16 12/03/16 12/03/16 14:55 14:55 14:59 RBC 3.55 L RDW 13.0 L Greer % (Auto) 9.7 H Greer # 0.9 H Potassium 2.6 L* Carbon Dioxide 17 L BUN 5 L Creatinine 0.4 L Calcium 7.9 L Magnesium Total Protein 5.4 L Albumin 2.8 L Urine pH 8.0 H U Epithel Cells (Auto) 16.0 H 12/04/16 12/05/16 16:16 06:25 RBC RDW Greer % (Auto) Greer # Potassium Carbon Dioxide BUN Creatinine Calcium Magnesium 5.5 H 6.2 H Total Protein Albumin Urine pH U Epithel Cells (Auto) Laboratory Results - last 24 hr 12/04/16 12/04/16 12/05/16 16:16 16:16 06:25 Potassium 4.1 Magnesium 5.5 H 6.2 H
--- NOTE | 2016-12-05 09:55 | Discharge Summary ---
Providers - Providers Date of Admission: 12/03/16 14:29 Date of discharge: 12/05/16 Attending physician: PERLA BANKS MD 12/03/16 14:31 Consult to Physician [CONS] Urgent Consulting Provider: KOSTA PARDO Reason For Exam: labor Place consult to:: WAN Notified:: Office Phone number called:: [phone] Was contact made?: Yes If yes, spoke with:: Gege Time called:: 14:32 Primary care physician: SHANIKA LAZO Hospitalization Reason for admission: IUP - , observation, labor, other (IUP @ 33 0/7 weeks) Other procedures: none complications: none Discharge diagnosis: other (IUP @ 33 2/7 weeks; PTL - resolved) Hospital course: Pt is a 31yo BF EDC 01/21/17; EGA 33 0/7 weeks who presented to L&D complaining of RUC's q 3-4 mins. She received care at [facility] [employer] since 11 weeks and has a history of 4 births @ 32, 34, 34 and 36 weeks. She was janette despite SQ Terbutaline, and therefore was admitted for IV Magnesium sulfate for tocolysis, Celestone and antibiotics. [facility] consultation was obtained, and after her 2nd dose of Celestone her Magnesium sulfate was discontinued without further contractions. Her cervical exam remained unchanged , and thus she was discharged to home to follow up with [facility] and [facility] next week. Condition at discharge: Good Disposition: DISCHARGED TO HOME OR SELFCARE - Discharge Diagnoses (1) 33 weeks gestation of Status: Chronic (2) labor Status: Resolved Qualifiers: labor trimester: third trimester labor delivery status: P Fetus number: single or unspecified fetus (3) Hypokalemia Status: Resolved Plan - Provider Discharge Summary Activity: routine, no sex for 6 weeks, no heavy lifting 4 weeks, no strenuous exercise Diet: routine Instructions: routine Additional instructions: [] Smoking cessation referral if applicable(refer to patient education folder for contact #) [] Refer to [facility]'s [facility] Booklet Call your doctor immediately for: * Fever > 100.5 * Heavy vaginal bleeding ( >1 pad per hour) * Severe persistent headache * Shortness of breath * Reddened, hot, painful area to leg or breast * Drainage or odor from incision. * Keep incision clean and dry at all times and follow doctor's instructions regarding bathing/showering - Follow up plan Follow up: SHANIKA LAZO DO [Primary Care Provider] - 7 Days MICHELLE LEIGH MD [Staff Physician] - 7 Days
[2016-12-05] MEDS: PRENATAL VITAMIN PO SCH (09:57)
[2016-12-05] MEDS: NORMODYNE PO SCH (09:58)
[2016-12-05 11:57] VITALS: BP 116/56
== END 2016-12-05 13:15 | disposition home or self-care (01) | DRG 778 ==
LOC: TRG 12:19 → LD 14:29
PROVIDERS: ADMIT Obstetrics & Gynecology; ATTEND Obstetrics & Gynecology
DX: O60.03 Preterm labor without delivery, third trimester (principal); E87.6 Hypokalemia; O26.893 Other specified pregnancy related conditions, third trimester; O10.913 Unspecified pre-existing hypertension complicating pregnancy, third trimester; Z3A.33 33 weeks gestation of pregnancy; Z83.3 Family history of diabetes mellitus; Z91.19 Patient's noncompliance with other medical treatment and regimen; Z82.49 Family history of ischemic heart disease and other diseases of the circulatory system; Z91.013 Allergy to seafood
CPT/HCPCS: 36415; 59025; 76816; 80053; 80307; 81001; 83735; 84132; 85025; 86850; 86900; 86901; 87086; 96372; J0290; J0595; J0702; J3105; J3475; J3480; J7120; Q0169

== ENCOUNTER 2016-12-08 09:27 | Outpatient (CLI) | payer MEDICAID ==
[2016-12-08] MEDS ORDERED: LACTATED RINGERS 1,000 ML ONE (09:29)
[2016-12-08] MEDS ORDERED: LACTATED RINGERS 500 ML IV ONE (09:45)
[2016-12-08] MEDS ORDERED: PROCARDIA*For Tocolysis only PO ONE (09:46)
[2016-12-08 10:15] LABS: Urine Drugs of Abuse Note Disclamer
[2016-12-08 10:32] LABS: Bilirubin,Urine NEG (Negative); Blood,Urine NEG (Negative); Ketones,Urine NEG (Negative); Leukocyte Esterase,Urine NEG (Negative); Nitrite,Urine NEG (Negative); Protein,Urine <15 mg/dL mg/dL (Negative); Urobilinogen,Urine < 2.0 mg/dL (<2.0); WBC,Urine < 1.0 /HPF (0.0-6.0)
[2016-12-08 10:51] VITALS: BP 119/76
== END 2016-12-08 12:09 | disposition home or self-care (01) ==
LOC: TRG 09:27
PROVIDERS: ATTEND Obstetrics & Gynecology
DX: Z34.93 Encounter for supervision of normal pregnancy, unspecified, third trimester (principal); Z3A.33 33 weeks gestation of pregnancy
CPT/HCPCS: 59025; 80307; 81001; 96360; J7120

== ENCOUNTER 2016-12-17 17:14 | Inpatient (IN) | payer MEDICAID ==
[2016-12-17] MEDS ORDERED: LACTATED RINGERS 1,000 ML ONE (17:15)
[2016-12-17] MEDS ORDERED: POLYCILLIN/NS 2 GM/100 ML 0 GM/0 ML BAG IV ONE (17:15)
[2016-12-17] MEDS ORDERED: PITOCin/NS 20 UNIT/1000ML DRIP 20,000 MILLIUNITS/1,000 ML BAG IV ONE (17:15)
--- NOTE | 2016-12-17 18:00 | History and Physical Report ---
History of Present Illness Date of examination: 12/17/16 Date of admission: 12/17/16 17:14 Chief complaint: Painful contractions History of present illness: Pt is a 31 yo at 35 weeks. 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 Patient's course was complicated by prior deliveries at 32, 34, 34 and 36 weeks; limited PRC; Elevated BMI, CHTN, HSV, Vit D deficiency, abnormal PAP and positive tox screen for Cannaboid. Co managed with [facility] Past History Past Medical History: other (depression) Past Surgical History: other (hernia repair) [employer] History: chlamydia, trichomonas Family/Genetic History: diabetes, hypertension Social history: single, other (positive cannaboid on initial tox screen). denies: smoking, alcohol abuse, prescription drug abuse, IV drug use - Obstetrical History Expected Date of Delivery: 01/21/17 Actual Gestation: 35 Week(s) 0 Day(s) : 8 Para: 5 Hx # Term Pregnancies: 1 Number of Pregnancies: 4 Spontaneous Abortions: 2 Induced : 0 Number of Living Children: 5 Medications and Allergies Allergies Allergy/AdvReac Type Severity Reaction Status Date / Time seafood Allergy Severe Anaphylaxis Uncoded 03/14/14 07:52 Home Medications Medication Instructions Recorded Confirmed Last Taken Type Pnv with Ca,No.72/Iron/FA 1 cap PO DAILY 07/09/15 12/08/16 1 Day Ago History [ Plus Tablet] Labetalol [Normodyne] 200 mg PO BID 12/04/16 12/08/16 1 Day Ago History Review of Systems All systems: negative - Vital Signs Vital signs: Vital Signs Pulse Pulse Ox 94 H 100 12/17/16 17:19 12/17/16 17:19 Temp Pulse Resp BP Pulse Ox 97.4 F L 86 20 145/81 99 12/17/16 17:52 12/17/16 17:52 12/17/16 17:52 12/17/16 17:52 12/17/16 17:52 - Physical Exam Cardiovascular: Regular rate Lungs: Positive: Normal air movement Vagina: Positive: normal moisture Uterus: Positive: enlarged Anus/Rectum: Positive: normal perianal skin Extremities: Positive: normal Deep Tendon Reflex Grade: Normal +2 - Obstetrical FHR: category 2 Uterine Contraction Monitor Mode: External Cervical Dilatation: 9 (Buldging bag) Cervical Effacement Percentage: 100 station: -1 Uterine Contraction Pattern: Regular Uterine Tone Measurement Phase: Resting Uterine Contraction Intensity: Strong/Firm Results All other labs normal. Assessment and Plan A:IUP 35 weeks active labor BBOW Painful , regular uterine contractions SVE 9100/-1 P: Admit to L&D for delivery Expect vaginal delivery NICU notified
--- NOTE | 2016-12-17 18:10 | Procedure Note ---
OB Delivery Note - Delivery Date of Delivery: 12/17/16 (1742) Surgeon: NANCY CARTER Estimated blood loss: 200cc - Vaginal Delivery position: OA Intrapartum events: none, precipitous labor- <3hr Delivery induction: none Delivery augmentation: rupture of membranes Delivery monitor: external FHT, external uterine Route of delivery: Delivery placenta: spontaneous Delivery cord: 3 umbilical vessels Delivery laceration: none Delivery comments: Baby john Castillo was delivered on 12/17/2016 @ 1742 over intact perineum after AROM of copious amount of clear fluid at 1730. Cord was short and was clamped and cut at the peineum at <1 minute of life. Baby was passed to awaiting NICU team for assessment. Placenta delivered [place] side presenting at 1745. Baby weighed 5lbs 9oz. Apgars 8/9. EBL 200. - A at 1 minute: 8 at 5 minutes: 9 Infant Gender: Male
[2016-12-17] MEDS ORDERED: BRETHINE SUB-Q PRN (18:11)
[2016-12-17] MEDS ORDERED: BRETHINE IVP PRN (18:11)
[2016-12-17] MEDS ORDERED: ePHEDrine SULFATE IV PRN (18:11)
[2016-12-17] MEDS ORDERED: MINERAL OIL PO PRN (18:11)
[2016-12-17] MEDS ORDERED: TYLENOL PO PRN (18:15)
[2016-12-17] MEDS ORDERED: TUCKS PAD TP PRN (18:15)
[2016-12-17] MEDS ORDERED: MILK OF MAGNESIA PO PRN (18:15)
[2016-12-17] MEDS ORDERED: LANSINOH TP PRN (18:15)
[2016-12-17] MEDS ORDERED: ZOFRAN IV PRN (18:15)
[2016-12-17] MEDS ORDERED: PHENERGAN PO PRN (18:15)
[2016-12-17] MEDS ORDERED: DERMOPLAST TP PRN (18:15)
[2016-12-17] MEDS ORDERED: BENADRYL PO PRN (18:15)
[2016-12-17] MEDS ORDERED: DULCOLAX PR PRN (18:15)
[2016-12-17] MEDS ORDERED: SODIUM CHLORIDE FLUSH SYRINGE 10 ML IV SCH (19:00)
[2016-12-17] MEDS ORDERED: PITOCin/NS 20 UNIT/1000ML DRIP 20 UNITS/1,000 ML BAG IV SCH (19:00)
[2016-12-17] MEDS ORDERED: NORCO 10/325 PO ONE (19:00)
[2016-12-17] MEDS ORDERED: XYLOCAINE 2% INFILTRATI ONE (19:00)
[2016-12-17] MEDS ORDERED: LACTATED RINGERS 1,000 ML IV SCH (19:00)
[2016-12-17] MEDS ORDERED: NORCO 5/325 PO ONE (20:44)
[2016-12-17] MEDS: MOTRIN PO SCH (20:50)
[2016-12-17] MEDS: COLACE PO SCH (21:55)
[2016-12-17 22:11] LABS: Hematocrit 34.2 % (30.3-42.9); Hemoglobin 11.1 gm/dl (10.1-14.3); Mean Corpuscular HGB Conc 32 % (30-34); Mean Corpuscular Hemoglobin 29 pg (28-32); Mean Corpuscular Volume 90 fl (79-97); Platelet Count 195 K/mm3 (140-440); Red Blood Count 3.81 M/mm3 (3.65-5.03); Red Cell Distribution Width 12.9 % (13.2-15.2); White Blood Count 12.5 K/mm3 (4.5-11.0)
[2016-12-18] MEDS: MOTRIN PO SCH ×5 (01:05→23:08)
[2016-12-18] MEDS: SENOKOT S PO SCH (01:06)
[2016-12-18 07:01] LABS: Hematocrit 34.2 % (30.3-42.9); Hemoglobin 11.2 gm/dl (10.1-14.3)
[2016-12-18] MEDS: NORCO 5/325 PO PRN ×3 (08:52→23:07)
[2016-12-18] MEDS: COLACE PO SCH (08:53)
[2016-12-18] MEDS: PRENATAL VITAMIN PO SCH (08:53)
[2016-12-18] MEDS ORDERED: FLUARIX QUAD 2016-2017(36 MOS+) IM ONE (12:00)
[2016-12-18] MEDS ORDERED: DEPO-PROVERA (CONTRACEPTION) IM ONE ×2 (12:01→17:00)
--- NOTE | 2016-12-18 12:04 | Progress Note ---
Assessment and Plan A: PP Day #1 Stable P: Follow Routine Orders Depo Demo Specialist prior to discharge D/C Home today per patient request RTO in One Week for Infant Circumcision RTO in 6 Weeks for Exam Subjective - Subjective Date of service: 12/18/16 Patient reports: appetite normal, voiding normally, pain well controlled, flatus , ambulating normally : doing well, bottle feeding Objective - Vital Signs Latest vital signs: Vital Signs Temp Pulse Pulse Resp BP BP Pulse Ox 12/18/16 08:18 98.4 F 58 L 18 127/81 12/18/16 04:30 98.6 F 67 16 124/82 12/17/16 22:30 98.6 F 72 16 127/64 12/17/16 19:36 83 131/74 12/17/16 19:35 89 100 12/17/16 19:30 94 H 98 12/17/16 19:25 88 100 12/17/16 19:21 80 129/71 12/17/16 19:20 80 100 12/17/16 19:15 79 100 12/17/16 19:10 85 100 12/17/16 19:06 71 126/63 12/17/16 19:05 84 100 12/17/16 19:02 75 18 126/63 100 12/17/16 19:00 73 100 12/17/16 18:55 84 100 12/17/16 18:54 20 12/17/16 18:52 73 73 18 162/97 162/97 100 12/17/16 18:50 88 100 12/17/16 18:45 76 99 12/17/16 18:40 76 99 12/17/16 18:37 85 18 152/86 99 12/17/16 18:36 85 152/86 12/17/16 18:35 77 99 12/17/16 18:30 76 97 12/17/16 18:25 85 99 12/17/16 18:24 88 137/70 12/17/16 18:22 69 88 18 137/70 98 12/17/16 18:20 96 H 98 12/17/16 18:15 89 98 12/17/16 18:10 84 99 12/17/16 18:07 78 18 151/95 99 12/17/16 18:06 78 151/95 12/17/16 18:05 82 99 12/17/16 18:00 90 97 12/17/16 17:55 84 99 12/17/16 17:52 97.4 F L 86 86 20 145/81 145/81 99 12/17/16 17:50 85 99 12/17/16 17:45 72 99 12/17/16 17:40 86 96 12/17/16 17:35 76 100 12/17/16 17:30 90 98 12/17/16 17:25 93 H 100 12/17/16 17:19 94 H 100 Intake and Output 12/17/16 12/18/16 12/18/16 22:59 06:59 14:59 Intake Total 240 Balance 240 Intake: Oral 240 Other: Total, Intake Amount 240 # Voids Void 1 Weight 87.543 kg Estimated Blood Loss 200 - Exam Breasts: Present: normal Cardiovascular: Present: Regular rate Lungs: Present: Clear to auscultation, Normal air movement Abdomen: Present: normal appearance, soft, normal bowel sounds Uterus: Present: normal, firm, fundal height below umbilicus Extremities: Present: normal - Labs Labs: Abnormal lab results 12/17/16 Range/Units 21:31 WBC 12.5 H (4.5-11.0) K/mm3 RDW 12.9 L (13.2-15.2) %
--- NOTE | 2016-12-18 12:05 | Discharge Summary ---
Providers - Providers Date of Admission: 12/17/16 17:14 Date of discharge: 12/18/16 Attending physician: PERLA BANKS MD Primary care physician: PERLA BANKS MD Hospitalization Reason for admission: active labor Delivery: Episiotomy: none Laceration: none Other procedures: none complications: none Discharge diagnosis: delivery baby: male Condition at discharge: Good Disposition: DISCHARGED TO HOME OR SELFCARE Plan - Provider Discharge Summary Activity: routine, no sex for 6 weeks, no heavy lifting 4 weeks, no strenuous exercise Diet: routine Instructions: routine Additional instructions: [] Smoking cessation referral if applicable(refer to patient education folder for contact #) [] Refer to [facility] Booklet Call your doctor immediately for: * Fever > 100.5 * Heavy vaginal bleeding ( >1 pad per hour) * Severe persistent headache * Shortness of breath * Reddened, hot, painful area to leg or breast * Drainage or odor from incision. * Keep incision clean and dry at all times and follow doctor's instructions regarding bathing/showering - Follow up plan Follow up: WILLIAM CLAY CNM [Advanced Practice Nurse] - 6 Weeks
[2016-12-18] MEDS ORDERED: BOOSTRIX IM ONE (23:00)
[2016-12-19] MEDS: COLACE PO SCH ×2 (05:33→11:08)
[2016-12-19] MEDS: SENOKOT S PO SCH (05:34)
[2016-12-19] MEDS: MOTRIN PO SCH ×2 (06:08→11:08)
[2016-12-19] MEDS: PRENATAL VITAMIN PO SCH (11:08)
[2016-12-19 19:23] VITALS: BP 142/78
== END 2016-12-19 18:00 | disposition home or self-care (01) | DRG 774 ==
LOC: LD 17:14 → OB 20:28
PROVIDERS: ADMIT Obstetrics & Gynecology; ATTEND Obstetrics & Gynecology
PROC: 10E0XZZ Delivery of Products of Conception, External Approach (ICD-10-PCS; principal; 2016-12-17)
PROC: 10907ZC Drainage of Amniotic Fluid, Therapeutic from Products of Conception, Via Natural or Artificial Opening (ICD-10-PCS; 2016-12-17)
PROC: 3E0234Z Introduction of Serum, Toxoid and Vaccine into Muscle, Percutaneous Approach (ICD-10-PCS; 2016-12-19)
DX: O60.14X0 Preterm labor third trimester with preterm delivery third trimester, not applicable or unspecified (principal); O98.52 Other viral diseases complicating childbirth; B00.9 Herpesviral infection, unspecified; O99.324 Drug use complicating childbirth; F12.90 Cannabis use, unspecified, uncomplicated; F32.9 Major depressive disorder, single episode, unspecified; O99.344 Other mental disorders complicating childbirth; O62.3 Precipitate labor; Z3A.35 35 weeks gestation of pregnancy; Z37.0 Single live birth; Z83.3 Family history of diabetes mellitus; Z82.49 Family history of ischemic heart disease and other diseases of the circulatory system; Z91.013 Allergy to seafood; Z23 Encounter for immunization; O69.3XX0 Labor and delivery complicated by short cord, not applicable or unspecified; O10.913 Unspecified pre-existing hypertension complicating pregnancy, third trimester
CPT/HCPCS: 36415; 85014; 85018; 85027; 90471; 90715; 99211; G0463; J0290; J1050; J2590; J7120

== ENCOUNTER 2018-06-09 11:16 | Outpatient (CLI) | payer MEDICAID ==
[2018-06-09] MEDS ORDERED: LACTATED RINGERS 500 ML IV ONE (12:09)
[2018-06-09] MEDS ORDERED: CELESTONE SOLUSPAN IM ONE (15:02)
[2018-06-09] MEDS ORDERED: LACTATED RINGERS 1,000 ML ONE (15:11)
[2018-06-09] MEDS ORDERED: BRETHINE SUB-Q ONE (16:51)
[2018-06-09 17:18] VITALS: BP 137/74
--- NOTE | 2018-06-09 19:20 | Ultrasound Report ---
FINAL REPORT EXAM: US OB > = 14 WEEKS FETUS HISTORY: limited pnc TECHNIQUE: Ultrasound obstetrical transabdominal PRIORS: There are no prior studies submitted for comparison FINDINGS: There is single live intrauterine gestation present in cephalic presentation cardiac activity is present with heart rate 137 beats per minute Placenta is fundal and grade 0 Cervical length 3.5 centimeters Amniotic fluid index is within normal limits 13.3 centimeters biometric measurements were obtained Biparietal diameter 31 weeks 6 days Head circumference 32 weeks 0 days Abdominal circumference 32 weeks 1 day Femur length 32 weeks 0 days Based on today's exam estimated gestational age is 32 weeks 0 days with estimated date of delivery August 04, 2018 Estimated weight today is 1899 grams 46 percentile Following structures were seen appear grossly unremarkable, stomach, kidneys, urinary bladder, diaphragm, four-chamber view of the heart, three-vessel cord and cord insert, visualized portions of the spine. Head was not well evaluated due to positioning IMPRESSION: Single live intrauterine gestation estimated at 32 weeks 0 days
== END 2018-06-09 18:35 | disposition home or self-care (01) ==
LOC: TRG 11:16
PROVIDERS: ATTEND Obstetrics & Gynecology
DX: O47.03 False labor before 37 completed weeks of gestation, third trimester (principal); Z3A.32 32 weeks gestation of pregnancy; Z91.013 Allergy to seafood
CPT/HCPCS: 59025; 76805; 87210; 96360; 96361; 96372; J0702; J3105; J7120

== ENCOUNTER 2018-06-10 15:31 | Outpatient (CLI) | payer MEDICAID ==
[2018-06-10 15:38] VITALS: BP 143/78
[2018-06-10] MEDS ORDERED: CELESTONE SOLUSPAN IM ONE (16:43)
== END 2018-06-10 16:04 | disposition home or self-care (01) ==
LOC: TRG 15:31
PROVIDERS: ATTEND Obstetrics & Gynecology
DX: O47.03 False labor before 37 completed weeks of gestation, third trimester (principal); O10.013 Pre-existing essential hypertension complicating pregnancy, third trimester; O99.513 Diseases of the respiratory system complicating pregnancy, third trimester; J45.909 Unspecified asthma, uncomplicated; Z3A.31 31 weeks gestation of pregnancy; Z91.013 Allergy to seafood; Z87.891 Personal history of nicotine dependence
CPT/HCPCS: 96372; J0702

== ENCOUNTER 2019-07-12 08:37 | Emergency (ER) | payer MEDICAID ==
[2019-07-12 08:48] VITALS: BP 162/112
--- NOTE | 2019-07-12 09:37 | Emergency Department Report ---
ED Abdominal Pain HPI - General Chief Complaint: Abdominal Pain Stated Complaint: 11WKS PREG/ABD INJURY Time Seen by Provider: 07/12/19 09:20 Source: patient Mode of arrival: Ambulatory Limitations: No Limitations - History of Present Illness Initial Comments: 34 y9o comes to ER after a cabinet fell and hit her abdomen- pt is 11 w . She just wants to make sure fetus is ok. no abd pain. no vag bleeding. no discharge. no back or pelvic pain rx labetolol MVI Associated Symptoms: denies other symptoms - Related Data Home Medications Medication Instructions Recorded Confirmed Last Taken Pnv,Calcium 72/Iron/Folic Acid 1 cap PO DAILY 07/09/15 07/21/18 07/20/18 09:00 [ Plus Tablet] Previous Rx's Medication Instructions Recorded Last Taken Type labetaloL [Labetalol 200mg TAB] 200 mg PO BID #60 tablet 07/12/19 Unknown Rx Allergies Allergy/AdvReac Type Severity Reaction Status Date / Time amoxicillin AdvReac Severe Hives Verified 07/13/18 14:56 seafood Allergy Severe Anaphylaxis Uncoded 06/10/18 15:34 ED Review of Systems ROS: Stated complaint: 11WKS PREG/ABD INJURY Other details as noted in HPI Comment: All other systems reviewed and negative ED Past Medical Hx - Past Medical History Previous Medical History?: Yes Hx Hypertension: Yes (labetelol) Hx Congestive Heart Failure: No Hx Diabetes: No Hx Deep Vein Thrombosis: No Hx Renal Disease: No Hx Sickle Cell Disease: No Hx Seizures: No Hx Asthma: Yes (USES INHALER) Hx COPD: No Hx HIV: No - Surgical History Past Surgical History?: No - Social History Smoking Status: Never Smoker Substance Use Type: None - Medications Home Medications: Home Medications Medication Instructions Recorded Confirmed Last Taken Type Pnv,Calcium 72/Iron/Folic Acid 1 cap PO DAILY 07/09/15 07/21/18 07/20/18 09:00 History [ Plus Tablet] labetaloL [Labetalol 200mg TAB] 200 mg PO BID #60 tablet 07/12/19 Unknown Rx ED Physical Exam - General Limitations: No Limitations General appearance: alert, in no apparent distress - Head Head exam: Present: atraumatic, normocephalic - Eye Eye exam: Present: normal appearance - ENT ENT exam: Present: mucous membranes moist - Neck Neck exam: Present: normal inspection - Respiratory Respiratory exam: Present: normal lung sounds bilaterally. Absent: respiratory distress - Cardiovascular Cardiovascular Exam: Present: regular rate, normal rhythm. Absent: systolic murmur, diastolic murmur, rubs, gallop - GI/Abdominal GI/Abdominal exam: Present: soft, normal bowel sounds - Extremities Exam Extremities exam: Present: normal inspection - Back Exam Back exam: Present: normal inspection - Neurological Exam Neurological exam: Present: alert, oriented X3 - Psychiatric Psychiatric exam: Present: normal affect, normal mood - Skin Skin exam: Present: warm, dry, intact, normal color. Absent: rash ED Course Vital Signs 07/12/19 08:47 Temperature 98.5 F Pulse Rate 81 Respiratory 18 Rate Blood Pressure 162/112 O2 Sat by Pulse 100 Oximetry ED Medical Decision Making - Medical Decision Making Vital Signs 07/12/19 08:47 Temperature 98.5 F Pulse Rate 81 Respiratory 18 Rate Blood Pressure 162/112 O2 Sat by Pulse 100 Oximetry provider bp 130/90- discussed with pt - she has known htn and states she is just upset- she will monitor no abd pain no vag bleeding or dc no pelvic pain here for wellness eval given bedside ultrasound done by provider- HR 150 bpm pt reassured dc home with obgyn follow up Critical care attestation.: If time is entered above; I have spent that time in minutes in the direct care of this critically ill patient, excluding procedure time. ED Disposition Clinical Impression: Contusion, Chronic hypertension Disposition: DC-01 TO HOME OR SELFCARE Is pt being admited?: No Does the pt Need Aspirin: No Condition: Stable Instructions: Abdominal Pain (ED), Hypertension (ED) Additional Instructions: BABY FINE HR 150 MONITOR YOUR BLOOD PRESSURE- CALL OB AND MAKE SURE IT IS RECHECKED Prescriptions: labetaloL [Labetalol 200mg TAB] 200 mg PO BID #60 tablet Referrals: PRIMARY CARE, [Referring] - 3-5 Days Time of Disposition: 10:10
== END 2019-07-12 10:22 | disposition home or self-care (01) ==
LOC: ED 08:37
DX: O9A.211 Injury, poisoning and certain other consequences of external causes complicating pregnancy, first trimester (principal); S30.1XXA Contusion of abdominal wall, initial encounter; O16.1 Unspecified maternal hypertension, first trimester; O99.511 Diseases of the respiratory system complicating pregnancy, first trimester; J45.909 Unspecified asthma, uncomplicated; Z79.899 Other long term (current) drug therapy; Z88.1 Allergy status to other antibiotic agents; Z91.013 Allergy to seafood; Z3A.11 11 weeks gestation of pregnancy; X58.XXXA Exposure to other specified factors, initial encounter; Y93.89 Activity, other specified; Y92.89 Other specified places as the place of occurrence of the external cause; Y99.8 Other external cause status
CPT/HCPCS: 99282

== ENCOUNTER 2019-08-30 19:21 | Emergency (ER) | payer MEDICAID | END 2019-08-30 21:50 | disposition left against medical advice (07) | LOC: ED 19:21 ==

== ENCOUNTER 2019-12-01 11:56 | Outpatient (CLI) | payer MEDICAID ==
[2019-12-01 12:34] LABS: Hematocrit 34.6 % (30.3-42.9); Hemoglobin 11.3 gm/dl (10.1-14.3); Mean Corpuscular HGB Conc 33 % (30-34); Mean Corpuscular Volume 91 fl (79-97); Platelet Count 199 K/mm3 (140-440); Red Blood Count 3.82 M/mm3 (3.65-5.03)
[2019-12-01] MEDS ORDERED: LACTATED RINGERS 1,000 ML ONE (12:38)
[2019-12-01 12:39] LABS: Amorphous Crystals,Urine Few; Bacteria,Urine 1+ /HPF (Negative); Bilirubin,Urine NEG (Negative); Blood,Urine NEG (Negative); Color,Urine Yellow (Yellow); Mucus,Urine FEW /HPF; Protein,Urine <15 mg/dL mg/dL (Negative)
[2019-12-01 12:53] LABS: Alanine Aminotransferase 9 units/L (7-56); Uric Acid 4.2 mg/dL (3.5-7.6)
[2019-12-01] MEDS ORDERED: LACTATED RINGERS 1,000 ML IV ONE (13:44)
[2019-12-01 13:45] VITALS: BP 129/68
== END 2019-12-01 14:30 | disposition home or self-care (01) ==
LOC: TRG 11:56
PROVIDERS: ATTEND Obstetrics & Gynecology
DX: O60.03 Preterm labor without delivery, third trimester (principal); O26.893 Other specified pregnancy related conditions, third trimester; R10.30 Lower abdominal pain, unspecified; O09.523 Supervision of elderly multigravida, third trimester; O16.3 Unspecified maternal hypertension, third trimester; O99.333 Smoking (tobacco) complicating pregnancy, third trimester; F17.200 Nicotine dependence, unspecified, uncomplicated; O99.323 Drug use complicating pregnancy, third trimester; F12.90 Cannabis use, unspecified, uncomplicated; Z3A.32 32 weeks gestation of pregnancy
CPT/HCPCS: 36415; 59025; 81001; 82565; 83615; 84450; 84460; 84550; 85027; J7120; 96360

== ENCOUNTER 2019-12-18 16:59 | Outpatient (CLI) | payer MEDICAID ==
[2019-12-18] MEDS ORDERED: LACTATED RINGERS 1,000 ML ONE (17:11)
[2019-12-18] MEDS ORDERED: LACTATED RINGERS 500 ML IV ONE (17:24)
[2019-12-18] MEDS ORDERED: TERBUTALINE 1 MG/1 ML INJ SUB-Q ONE (17:48)
[2019-12-18] MEDS ORDERED: BUTORPHANOL 2 MG/1 ML INJ IV PRN (17:48)
[2019-12-18 19:41] LABS: Hematocrit 34.9 % (30.3-42.9); Hemoglobin 11.5 gm/dl (10.1-14.3); Mean Corpuscular HGB Conc 33 % (30-34); Mean Corpuscular Volume 90 fl (79-97); Platelet Count 207 K/mm3 (140-440); Red Cell Distribution Width 12.9 % (13.2-15.2)
[2019-12-18 19:57] LABS: Alanine Aminotransferase 8 units/L (7-56); Uric Acid 4.6 mg/dL (3.5-7.6)
--- NOTE | 2019-12-18 20:54 | Ultrasound Report ---
Examination: Ultrasound Obstetrical Limited, 12/18/2019 INDICATION: Evaluate well being. COMPARISON: No relevant prior studies are available for comparison. FINDINGS: There is a single living intrauterine with the head in the cephalic position. The hea rt rate is 118 beats per minute. The placenta is grade 1 and fundal. IMPRESSION: 1. Limited obstetrical ultrasound with details as above. Signer Name: Annette Estrada MD Signed: 12/18/2019 8:50 PM Workstation Name: [id number]
[2019-12-18 22:06] LABS: Bilirubin,Urine NEG (Negative); Blood,Urine MOD (Negative); Color,Urine Yellow (Yellow); Mucus,Urine FEW /HPF; Protein,Urine <15 mg/dL mg/dL (Negative); Urobilinogen,Urine < 2.0 mg/dL (<2.0)
[2019-12-19] MEDS ORDERED: MORPHINE 4 MG/1 ML INJ IM ONE (00:35)
[2019-12-19 08:12] VITALS: BP 145/86
== END 2019-12-19 09:45 | disposition home or self-care (01) ==
LOC: TRG 16:59
PROVIDERS: ATTEND Obstetrics & Gynecology
DX: O62.9 Abnormality of forces of labor, unspecified (principal); O10.913 Unspecified pre-existing hypertension complicating pregnancy, third trimester; O09.513 Supervision of elderly primigravida, third trimester; O99.323 Drug use complicating pregnancy, third trimester; F12.90 Cannabis use, unspecified, uncomplicated; O99.333 Smoking (tobacco) complicating pregnancy, third trimester; F17.200 Nicotine dependence, unspecified, uncomplicated; Z3A.34 34 weeks gestation of pregnancy
CPT/HCPCS: 36415; 76815; 81001; 82565; 83615; 84450; 84460; 84550; 85027; 86592; 86850; 86900; 86901; 96361; 96372; 96374; J0595; J3105; J7120